=== PATIENT | female | born 1985 | race Caucasian/White ===

== ENCOUNTER 2022-08-18 09:30 | Outpatient (CLI) | payer OTHER, SELFPAY ==
[2022-08-18 11:45] LABS: Albumin* 3.9 g/dL (3.3-5.0); Chloride* 106 mmol/L (96-114); Potassium* 4.2 mmol/L (3.6-5.1); Sodium* 141 mmol/L (135-149)
[2022-08-18 11:47] LABS: Cholesterol* 151 mg/dL (90-199); Creatinine* 0.7 mg/dL (0.5-1.5); Estimated Glomerular Filt Rate 115 ml/min
[2022-08-18 11:48] LABS: Alanine Aminotransferase* 18 U/L (4-35); Alkaline Phosphatase* 73 U/L (40-150); Aspartate Amino Transferase* 22 U/L (12-35); Bilirubin Total* 0.3 mg/dL (0.1-1.5); Blood Urea Nitrogen* 14 mg/dL (5-24); Carbon Dioxide* 30 mmol/L (20-32); Glucose* 86 mg/dL (60-115); Total Protein* 6.5 g/dL (6.0-8.3); Triglycerides* 46 mg/dL (40-149)
[2022-08-18 11:49] LABS: Calcium* 8.3 mg/dL (8.4-10.6); HDL Cholesterol* 60 mg/dL (>=50); LDL Cholesterol Calculated 82 mg/dL (<100)
[2022-08-18 12:17] LABS: TSH With Reflex to FT4* 0.786 uIU/mL (0.270-4.200)
== END 2022-08-18 09:31 | disposition home or self-care (01) ==
LOC: LKVREF 09:30
PROVIDERS: PCP Physician Assistant Medical; Visit Provider Physician Assistant Medical
DX: Z00.00 Encounter for general adult medical examination without abnormal findings (principal); R53.83 Other fatigue; Z13.6 Encounter for screening for cardiovascular disorders
CPT/HCPCS: 80053; 80061; 84443

== ENCOUNTER 2022-09-21 11:27 | Outpatient (CLI) | payer OTHER, SELFPAY | END 2022-09-21 11:28 | disposition home or self-care (01) | LOC: NFLDREF 09-22 11:08 | PROVIDERS: PCP Physician Assistant Medical; Referring Provider Physician Assistant Medical; Visit Provider Physician Assistant Medical | DX: D64.9 Anemia, unspecified (principal) | CPT/HCPCS: 82607; 82746; 83540; 83550 ==

== ENCOUNTER 2023-01-21 19:29 | Emergency (ER) | payer OTHER, SELFPAY ==
[2023-01-21] VITALS (8 sets, daily range): BP systolic 111–125; BP diastolic 69–84; PULSE 74–93; RESP 16; TEMP 36.8–37.3; O2SAT 98–100; BMI 21.1
[2023-01-21 19:58] LABS: Ur HCG Qualitative* Negative (Negative)
--- NOTE | 2023-01-21 20:12 | CRLHL7_ITS ---
For Patients: As a result of the Century Cures Act, medical imaging exams and procedure reports are released immediately into your electronic medical record. You may view this report before your referring provider. If you have questions, please contact your health care provider. INDICATION: Chest pain. TECHNIQUE: CT chest PE was acquired with 95 cc Isovue 370 IV contrast. COMPARISON: None. FINDINGS: Heart and vasculature: Contrast opacification of the pulmonary arterial tree is adequate. No sign of pulmonary embolism. Heart size is normal. Thoracic aorta and pulmonary artery are normal in caliber. Lungs and pleura: Lungs and pleural spaces are clear. No suspicious nodules or infiltrates. No pleural effusions, pleural thickening, or pneumothorax. Lymph nodes/mediastinum: No mediastinal, hilar, or axillary adenopathy. Thyroid gland is unremarkable. Chest wall: No masses. Bilateral breast implants. Upper abdomen: No acute or significant findings. Bones: Anterior endplate sclerosis in the lower thoracic spine, likely degenerative. IMPRESSION: No evidence of pulmonary embolism or acute intrathoracic abnormality. Please note that all CT scans at this facility use dose modulation, iterative reconstruction, and/or weight-based dosing when appropriate to reduce radiation dose to as low as reasonably achievable. Dictated by Lance Boggs MD @ 01/21/2023 9:32:52 PM (Electronically Signed)
--- NOTE | 2023-01-21 20:13 | ED_ITS ---
HPI - Chest Pain General Chief Complaint: Chest Pain Stated Complaint: possible clot in lung Time Seen by Provider: 01/21/23 19:30 History of Present Illness HPI narrative: This 37-year-old female comes from urgent care clinic because of chest pain and slightly elevated D-dimer test completed there. The patient states that she has a history of heartburn but noticed a little different nature to it almost a week ago. She states that she did not take any coffee or soft drinks and this helped some. She also did take some Tums. Despite this her chest discomfort has been rather constant and seems to worsen through this week so she presented to urgent care. EKG and labs there returned normal except for a D-dimer elevated to 594. Upper range of normal on this scale is 500. Patient does not have any risk factors except for remote history of melanoma. She denies having any nausea, vomiting, lightheadedness, shortness of breath, diaphoresis, or exercise intolerance. She does not have any cardiac risk factors. She arrives with normal vital signs. She is sent here to have a CT scan to rule out pulmonary embolism. She denies having any unilateral leg pain or swelling. She does not have any prior history of blood clot. Related Data Previous Rx's Medication Instructions Recorded pantoprazole 20 mg tablet,delayed 20 mg PO DAILY #30 tabs 01/21/23 release (Protonix) Allergies Allergy/AdvReac Type Severity Reaction Status Date / Time No Known Allergy Allergy Unknown Unknown Uncoded 01/21/23 17:57 Review of Systems Status of ROS Reports: 10 or more systems reviewed and unremarkable except as noted in History and below Narrative Constitutional: No fevers, no weight gain or loss. Eyes: No discharge. No vision changes. HENT: No congestion, no sore throat, no ear pain. Cardiovascular: No palpitations. Respiratory: No shortness of breath, no wheezes, no cough. Gastrointestinal: No abdominal pain, no vomiting, no diarrhea. Genitourinary: No dysuria, no hematuria. Musculoskeletal: Normal range of motion. Skin: No rashes, no pruritis. Neurological: No dizziness, weakness, sensory change, speech change. Endo/Heme/Allergies: No bruising or bleeding. No polydipsia. Pysch: no suicidality, no anxiety, no insomnia. All other systems reviewed and are negative. [facility] Medical History (Updated 01/21/23 @ 21:40 by Fermin Escobar MD) Chest pain ?R07.9 - Chest pain, unspecified (ICD-10) Ear infection (~2021) ?H66.90 - Otitis media, unspecified, unspecified ear (ICD-10) History of melanoma (~2012) ?Z85.820 - Personal history of malignant melanoma of skin (ICD-10) Surgical History History of skin surgery ?Z98.890 - Other specified postprocedural states (ICD-10) Hx of section ?Z98.891 - History of uterine scar from previous surgery (ICD-10) H/O breast augmentation ?Z98.82 - Breast implant status (ICD-10) Family History (Updated 06/04/22 @ 13:55 by Carol Monson PA-C) Father Melanoma, Onset Age: 30 Paternal Grandmother Melanoma Uncle Melanoma Mother Graves' disease Paternal Grandmother Breast cancer Social History (Updated 06/04/22 @ 13:59 by Carol Monson PA-C) Narrative: (- Elroy); 2 kids- boys age 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 Dental hygienist Smoking Status: Never smoker Second hand tobacco smoke exposure: No How often do you have a drink containing alcohol: never How often do you have six or more drinks on one occasion: Never AUDIT-C Alcohol total score: 0 Non-prescribed substance use: denies use Exam Narrative Exam Narrative: Constitutional: Well-developed, well-nourished, no acute distress. HEENT: Normocephalic, atraumatic. Neck: Normal range of motion. Nontender. Supple. Heart: Regular. No murmurs. Normal rate. Intact distal pulses. Lungs: Clear to auscultation. No chest discomfort. No wheezes, rhonchi, or rales. Abdomen: Normal bowel sounds. Nontender. No rebound tenderness. Genitalia: Deferred. Back: No midline tenderness. Normal range of motion. Extremities: Normal range of motion. No injury. Skin: Intact. No rash. Warm. No erythema or pallor. Neurologic: No altered sensation. No weakness. Alert and oriented. Psychiatric: No suicidality. No anxiety or depression. No insomnia. Nursing notes and vitals signs are reviewed. Const Vital Signs, click to edit/add: Vital Signs - 24 hr 01/21/23 19:42 01/21/23 20:00 01/21/23 20:11 Temperature 99.1 F Pulse Rate 82 Pulse Rate [Left Pulse Oximeter] 93 Respiratory Rate 16 16 Blood Pressure 121/74 Blood Pressure [Right Upper Arm] 118/84 Pulse Oximetry 100 98 99 Oxygen Delivery Method Room Air 01/21/23 21:00 01/21/23 21:01 Temperature Pulse Rate 79 84 Pulse Rate [Left Pulse Oximeter] Respiratory Rate 16 16 Blood Pressure 125/69 111/81 Blood Pressure [Right Upper Arm] Pulse Oximetry 100 99 Oxygen Delivery Method Course Vital Signs Vital signs: Initial Vital Signs Temperature 99.1 F 01/21/23 19:42 Temperature Source Temporal Artery Scan 01/21/23 19:42 Pulse Rate 93 01/21/23 19:42 Respiratory Rate 16 01/21/23 19:42 Respiratory Effort Normal, Spontaneous, Non-Labored 01/21/23 19:42 Respiratory Depth Normal 01/21/23 19:42 Respiratory Pattern Normal 01/21/23 19:42 Blood Pressure 118/84 01/21/23 19:42 Blood Pressure Mean 95 01/21/23 19:42 Blood Pressure Position Sitting 01/21/23 19:42 Pulse Oximetry 100 01/21/23 19:42 Oxygen Delivery Method Room Air 01/21/23 19:42 Vital Signs Temperature 99.1 F 01/21/23 19:42 Pulse Rate 93 01/21/23 19:42 Respiratory Rate 16 01/21/23 19:42 Blood Pressure 118/84 01/21/23 19:42 Pulse Oximetry 100 01/21/23 19:42 Oxygen Delivery Method Room Air 01/21/23 19:42 Temperature 99.1 F 01/21/23 19:42 Pulse Rate 84 01/21/23 21:01 Respiratory Rate 16 01/21/23 21:01 Blood Pressure 111/81 01/21/23 21:01 Pulse Oximetry 99 01/21/23 21:01 Oxygen Delivery Method Room Air 01/21/23 19:42 MDM - Chest Pain MDM Narrative Medical decision making narrative: This patient is sent here because of the slightly elevated D-dimer at urgent care. I did run scores for revised [place] score and well's criteria to rule out DVT and pulmonary embolism. Her risk is low in both of these studies but given the D-dimer results a CT scan for pulmonary embolism evaluation is ordered and completed. CT scan results returned with no acute findings. There is no evidence of pulmonary embolism. Most likely this patient's symptoms are related to her GI tract with some heartburn symptoms. She has been taking Rolaids with minimal relief. I did prescribe Protonix. I advised her to follow-up with her primary physician as needed or return if worsening. Lab Data Labs: Lab Results 01/21/23 Range/Units 19:49 Urine HCG, Qual Negative (Negative) Imaging Data CT scan - chest: Radiologist's impression: No evidence of pulmonary embolism or acute intrathoracic abnormality. Discharge Plan Discharge Clinical Impression: Esophagitis, reflux Patient Disposition: Home, Self-Care Condition: Stable Additional Instructions: Take medication as prescribed and needed. Follow up with MD or return if worsening. Prescriptions: New pantoprazole [Protonix] 20 mg tablet,delayed release (DR/EC) 20 mg PO DAILY Qty: 30 2RF Follow Up/Referrals: Carol Monson PA-C [Primary Care Provider] - Stand Alone Forms: [facility] Info Instructions
== END 2023-01-21 21:48 | disposition home or self-care (01) ==
PROVIDERS: Emergency Provider Emergency Medicine Emergency Medical Services; PCP Physician Assistant Medical
DX: K20.90 Esophagitis, unspecified without bleeding (principal)
CPT/HCPCS: 71260; 81025; 94761; 99284; Q9967

== ENCOUNTER 2023-03-09 19:35 | Outpatient (CLI) | payer OTHER, SELFPAY | END 2023-03-09 19:36 | disposition home or self-care (01) | PROVIDERS: PCP Physician Assistant Medical; Visit Provider Emergency Medicine | DX: D64.9 Anemia, unspecified (principal); R30.0 Dysuria | CPT/HCPCS: 82728; 83516 ==

== ENCOUNTER 2023-03-19 07:46 | Outpatient (CLI) | payer OTHER, SELFPAY ==
--- NOTE | 2023-03-19 08:09 | W.ANESCHARGE ---
Anesthesia Charges Start Date/Time Anesthesia Start Date: 03/19/23 Anesthesia Start Time: 08:21 Stop Date/Time Anesthesia Stop Date: 03/19/23 Anesthesia Stop Time: 08:49
--- NOTE | 2023-03-19 08:53 | W.ANESCHARGE ---
Anesthesia Charges Start Date/Time Anesthesia Start Date: 03/19/23 Anesthesia Start Time: 08:21 Stop Date/Time Anesthesia Stop Date: 03/19/23 Anesthesia Stop Time: 08:49
== END 2023-03-19 07:47 | disposition home or self-care (01) ==
LOC: OP CLINIC 07:47
PROVIDERS: PCP Physician Assistant Medical; Visit Provider Emergency Medicine
DX: D50.9 Iron deficiency anemia, unspecified (principal)
CPT/HCPCS: 00811; 45380; 88305; J2704

== ENCOUNTER 2023-05-20 15:10 | Outpatient (CLI) | payer OTHER, SELFPAY | END 2023-05-20 15:11 | disposition home or self-care (01) | PROVIDERS: PCP Physician Assistant Medical; Visit Provider Emergency Medicine | DX: D50.9 Iron deficiency anemia, unspecified (principal); R10.9 Unspecified abdominal pain | CPT/HCPCS: 80053; 82728; 83690 ==

== ENCOUNTER 2023-05-21 10:19 | Outpatient (CLI) | payer OTHER, SELFPAY | END 2023-05-21 10:20 | disposition home or self-care (01) | LOC: NFLDREF 05-24 07:44 | PROVIDERS: PCP Physician Assistant Medical; Referring Provider Physician Assistant Medical; Visit Provider Emergency Medicine | DX: R10.9 Unspecified abdominal pain (principal) | CPT/HCPCS: 87338 ==

== ENCOUNTER 2023-06-04 10:39 | Outpatient (CLI) | payer OTHER, SELFPAY ==
--- NOTE | 2023-06-04 11:21 | W.ANESCHARGE ---
Anesthesia Charges Start Date/Time Anesthesia Start Date: 06/04/23 Anesthesia Start Time: 11:10 Stop Date/Time Anesthesia Stop Date: 06/04/23 Anesthesia Stop Time: 11:25
--- NOTE | 2023-06-04 11:32 | W.ANESCHARGE ---
Anesthesia Charges Start Date/Time Anesthesia Start Date: 06/04/23 Anesthesia Start Time: 11:10 Stop Date/Time Anesthesia Stop Date: 06/04/23 Anesthesia Stop Time: 11:25
== END 2023-06-04 10:40 | disposition home or self-care (01) ==
LOC: OP CLINIC 10:40
PROVIDERS: PCP Physician Assistant Medical; Visit Provider Internal Medicine
DX: R10.13 Epigastric pain (principal); D50.9 Iron deficiency anemia, unspecified; K21.9 Gastro-esophageal reflux disease without esophagitis
CPT/HCPCS: 00731; 43239; 88305; J2704; J3490

== ENCOUNTER 2024-06-01 13:37 | Outpatient (CLI) | payer OTHER, SELFPAY | END 2024-06-01 13:38 | disposition home or self-care (01) | PROVIDERS: PCP Physician Assistant Medical; Visit Provider Physician Assistant Medical | DX: D64.9 Anemia, unspecified (principal); Z13.228 Encounter for screening for other metabolic disorders; Z13.220 Encounter for screening for lipoid disorders; Z13.29 Encounter for screening for other suspected endocrine disorder | CPT/HCPCS: 80048; 80061; 82728; 84443 ==